=== PATIENT | female | born 1950 | race Caucasian/White ===

== ENCOUNTER → 2019-03-24 | Day surgery (SDC) | payer MEDICARE ==
[2019-03-23 09:31] VITALS: BMI 23.9
[~2019-03-24] MED LIST: Cyclopentolate 1% Opth Drop 2 ML BOT L EYE SCH; Cyclopentolate 1% Opth Drop 2 ML BOT ONE; Fentanyl 100 MCG/2 ML VIAL ONE; Fluorouracil 100 MG, Enoxaparin Sodium 25 MG, EPINEPHrine 0.3 MG in Ophthalmic Irrigati... IRR SCH; Phenylephrine 2.5% Ophth Soln 5 ML BOT L EYE SCH; Phenylephrine 2.5% Ophth Soln 5 ML BOT ONE
--- NOTE | 2019-03-24 20:20 | OP ---
DATE OF PROCEDURE: 03/24/2019 PREOPERATIVE DIAGNOSIS: Rhegmatogenous retinal detachment, left eye. POSTOPERATIVE DIAGNOSIS: Rhegmatogenous retinal detachment, left eye. PROCEDURES PERFORMED: Pars plana vitrectomy, complex retinal detachment repair, left eye. ANESTHESIA: General endotracheal anesthesia. DESCRIPTION OF PROCEDURE: The patient was identified in the preoperative holding area. Appropriate informed consent for the planned surgical procedure on the left eye had been obtained. General endotracheal anesthesia was initiated. Retrobulbar block was placed. The patient was prepped and draped in usual sterile manner for ophthalmic surgery in the left eye. Lid speculum was placed in the left eye. 25-gauge trocar was placed in the conjunctiva and sclera superotemporally, inferotemporally, and supranasally. Infusion line was placed inferotemporally. Light pipe and vitreous cutter were inserted into the eye. Core vitrectomy was performed. Attention was turned to the inferior nasal . All traction was removed from the surface of the . Posterior drained retinotomy was created. Complete air-fluid exchange was performed. Fluid was drained from underneath the retina through a posterior drained retinotomy. A 360 laser was placed using Endolaser delivery device. Silicone oil was infused in the eye and sclerotomies were suture closed. Retrobulbar Kenalog and subconjunctival Ancef were placed. Antibiotic ointment was placed and the eye was patched and shielded. The patient was advised to position left side down and follow up with Dr. Bowers in the morning. Job ID: [id number]
== END ==
LOC: SDC 09:46
PROVIDERS: ATTEND Ophthalmology Retina Specialist
PROC: 08T53ZZ Resection of Left Vitreous, Percutaneous Approach (ICD-10-PCS; principal; 2019-03-24)
DX: H33.002 Unspecified retinal detachment with retinal break, left eye (principal)
CPT/HCPCS: 67108; C1814; J0171; J1650; J3010; J9190

== ENCOUNTER 2019-07-07 10:22 | Day surgery (SDC) | payer MEDICARE ==
[2019-07-06 14:37] VITALS: BMI 23.7
[~2019-07-07 10:22] MED LIST changes: -Cyclopentolate 1% Opth Drop 2 ML BOT L EYE SCH; -Cyclopentolate 1% Opth Drop 2 ML BOT ONE; +Midazolam HCl 2 mg/2 ml Vial ONE; +PROPOFOL 20 ML ONE; -Phenylephrine 2.5% Ophth Soln 5 ML BOT L EYE SCH; -Phenylephrine 2.5% Ophth Soln 5 ML BOT ONE
[2019-07-07] MEDS ORDERED: Phenylephrine 2.5% Ophth Soln 5 ML BOT ONE (10:34)
[2019-07-07] MEDS ORDERED: Cyclopentolate 1% Opth Drop 2 ML BOT ONE (10:34)
--- NOTE | 2019-07-07 21:21 | OP ---
DATE OF PROCEDURE: 07/07/2019 PREOPERATIVE DIAGNOSIS: Vitreous opacification, epiretinal membrane. POSTOPERATIVE DIAGNOSIS: Vitreous opacification, epiretinal membrane. PROCEDURE PERFORMED: Pars plana vitrectomy, membrane peel, left eye. ANESTHESIA: Local with monitored anesthesia care. PROCEDURE IN DETAIL: The patient was identified in the preoperative holding area. Appropriate informed consent for the planned surgical procedure on the left eye had been obtained. The patient was transported to the operative suite. Appropriate cardiopulmonary monitoring was established. Local anesthesia was obtained using retrobulbar modified Van Lint lid block using 50:50 mixture of 4% lidocaine and 0.75% bupivacaine. The patient was prepped and draped in usual sterile manner for ophthalmic surgery, left eye. Lid speculum was placed in the left eye. 25-gauge trocar was placed in conjunctiva and sclera supratemporally, inferotemporally, and supranasally. Infusion line was placed inferotemporally. Light pipe vitreous cutter was inserted to the eye. Core vitrectomy was performed. Silicone oil was removed to fill the eye using viscous fluid removal device. Indocyanine green dye was infused on the posterior pole x1, identifying the large epiretinal membrane and star fold. This was elevated using membrane scraper and peeled across the macula using end gripping forceps. No further holes, breaks, or tears were identified. The retina looked well attached. Sclerotomy suture closed with 7-0 Vicryl suture and 6-0 plain gut suture. Retrobulbar Kenalog and subconjunctival Ancef were placed. Antibiotic ointment was placed. Eye was patched and shielded. The patient was taken to postoperative recovery unit in good condition having suffered no immediate perioperative complications. The patient was instructed to keep patch and shield on, avoid lifting or bending. Followup appointment with Dr. Bowers. Job ID: [id number]
== END 2019-07-07 13:40 | disposition home or self-care (01) ==
LOC: SDC 10:22
PROVIDERS: ATTEND Ophthalmology Retina Specialist
PROC: 08T53ZZ Resection of Left Vitreous, Percutaneous Approach (ICD-10-PCS; principal; 2019-07-07)
PROC: 08NF3ZZ Release Left Retina, Percutaneous Approach (ICD-10-PCS; 2019-07-07)
DX: H35.372 Puckering of macula, left eye (principal); H43.392 Other vitreous opacities, left eye
CPT/HCPCS: J0171; J1650; J2250; J2704; J3010; J9190

== ENCOUNTER 2019-08-18 05:57 | Day surgery (SDC) | payer MEDICARE ==
[2019-08-17 14:00] VITALS: BMI 24.4
[2019-08-18] MEDS ORDERED: Fluorouracil 100 MG, Enoxaparin Sodium 25 MG, EPINEPHrine 0.3 MG in Ophthalmic Irrigati... IRR SCH ×2 (06:00→06:06)
[2019-08-18] MEDS ORDERED: Sodium Chloride 0.9% 0 ML ONE (06:03)
[2019-08-18] MEDS ORDERED: cefOXitin 2 GM VIAL ONE (06:03)
[2019-08-18] MEDS ORDERED: Phenylephrine 2.5% Ophth Soln 5 ML BOT ONE (06:05)
[2019-08-18] MEDS ORDERED: Cyclopentolate 1% Opth Drop 2 ML BOT ONE (06:05)
[2019-08-18] MEDS ORDERED: Midazolam HCl 2 mg/2 ml Vial ONE ×2 (06:39→07:52)
[2019-08-18] MEDS ORDERED: Fentanyl 100 MCG/2 ML VIAL ONE (06:39)
--- NOTE | 2019-08-18 13:49 | OP ---
DATE OF PROCEDURE: 08/18/2019 PREOPERATIVE DIAGNOSIS: Rhegmatogenous retinal detachment, left eye. POSTOPERATIVE DIAGNOSIS: Rhegmatogenous retinal detachment, left eye. PROCEDURES PERFORMED: Pars plana vitrectomy and retinal detachment repair, left eye. ANESTHESIA: Local with monitored anesthesia care. DESCRIPTION OF PROCEDURE: The patient was identified in the preoperative holding area. Appropriate informed consent for the planned surgical procedure on the left eye had been obtained. The patient was transported to the operative suite. Appropriate cardiopulmonary monitoring established, local anesthesia obtained using a retrobulbar block. The patient was prepped and draped in usual sterile manner for ophthalmic surgery on the left eye. Lid speculum was placed in the left eye. 25-gauge trocar was placed in conjunctiva and sclera superotemporally, inferotemporally, and supranasally. Infusion line was placed inferotemporally. Light pipe vitreous cutter inserted into the eye. Core vitrectomy was performed. A break was noted at the 12:30 position. The scleral depressed vitrectomy was performed removing any residual vitreous from the area of the tear. 270 superior anterior laser was placed and fluid was drained through previously existing inferior nasal retinotomy. 28% sulfur hexafluoride gas was infused into the eye. Sclerotomy was suture closed with 6-0 plain gut suture. Retrobulbar Kenalog was placed. Antibiotic ointment was placed. Eye was patched and shielded. The patient was taken to postoperative recovery unit in good condition having suffered no immediate perioperative complications. The patient was instructed to keep patch and shield on, avoid lifting or bending, and followup appointment with Dr. Bowers. Job ID: [id number]
== END 2019-08-18 08:45 | disposition home or self-care (01) ==
LOC: SDC 05:57
PROVIDERS: ATTEND Ophthalmology Retina Specialist
PROC: 08953ZZ Drainage of Left Vitreous, Percutaneous Approach (ICD-10-PCS; principal; 2019-08-18)
DX: H33.002 Unspecified retinal detachment with retinal break, left eye (principal)
CPT/HCPCS: J0171; J0694; J1650; J2250; J3010; J3490; J9190

== ENCOUNTER 2019-10-06 09:45 | Day surgery (SDC) | payer MEDICARE ==
[2019-10-05 13:40] VITALS: BMI 24.4
[2019-10-06] MEDS ORDERED: Cyclopentolate 1% Opth Drop 2 ML BOT ONE (10:09)
[2019-10-06] MEDS ORDERED: Phenylephrine 2.5% Ophth Soln 5 ML BOT ONE (10:09)
[2019-10-06] MEDS ORDERED: Midazolam HCl 2 mg/2 ml Vial ONE (10:45)
[2019-10-06] MEDS ORDERED: Famotidine/PF 20 mg/2ml Vial ONE (11:43)
[2019-10-06] MEDS ORDERED: Maxitrol 0.1% Opth Oint 3.5 GM TUBE ONE (13:31)
[2019-10-06] MEDS ORDERED: Dexamethasone 20 MG/5 ML VIAL ONE (13:31)
[2019-10-06] MEDS ORDERED: Lidocaine 1% PF 5 ML VIAL ONE ×2 (13:31)
[2019-10-06] MEDS ORDERED: Bupivacaine PF 0.75% SDV 10 ML ONE (13:31)
[2019-10-06] MEDS ORDERED: Lidocaine 4% PF 5 ML AMP ONE (13:31)
[2019-10-06] MEDS ORDERED: Ondansetron PF 4 MG/2 ML Vial ONE (13:31)
[2019-10-06] MEDS ORDERED: ePHEDrine/0.9% NaCl/PF SYRINGE 50 mg/10 ml ONE (13:31)
[2019-10-06] MEDS ORDERED: Triamcinolone 40 MG/ML VIAL ONE (13:31)
[2019-10-06] MEDS ORDERED: Metoclopramide HCl 10 MG/2 ML VIAL ONE (13:31)
[2019-10-06] MEDS ORDERED: CEFAZOLIN 1 GM VIAL ONE (13:31)
[2019-10-06] MEDS ORDERED: PHENYLEPHRINE-NS 100 MCG/ML 10 ML SYRINGE ONE (13:31)
[2019-10-06] MEDS ORDERED: PROPOFOL 200 MG/20 ML VIAL ONE (13:31)
--- NOTE | 2019-10-07 13:17 | OP ---
DATE OF PROCEDURE: 10/06/2019 PREOPERATIVE DIAGNOSIS: Cataract retinal detachment, left eye. POSTOPERATIVE DIAGNOSIS: Cataract retinal detachment, left eye. PROCEDURES PERFORMED: Pars plana vitrectomy, pars plana lensectomy, secondary intra-ocular lens and retinal detachment repair, left eye. ANESTHESIA: General endotracheal anesthesia. PROCEDURE IN DETAIL: The patient was identified in the preoperative holding area. Appropriate informed consent for the planned surgical procedure on the left eye had been obtained. The patient was transported to the operative suite. Appropriate cardiopulmonary monitoring was established. The patient was prepped and draped in usual sterile manner for ophthalmic surgery, left eye. Lid speculum was placed in the left eye. 25-gauge trocar was placed in the conjunctiva and sclera superotemporally, , inferotemporally, and supranasally. Infusion line was placed inferotemporally. Light pipe vitreous cutter was inserted into the eye. Core vitrectomy was performed. Fragmatome was inserted into the eye, and the crystalline lens was removed via posterior approach. Fluid was removed from underneath the retina, flattened the retina completely and 360 laser was placed using Endolaser delivery device. MA60AC intra-ocular lens was inserted into the eye, and the haptics were externalized using the anomaly procedure. 20% sulfur hexafluoride gas was infused into the eye. Sclerotomy was suture closed. Retrobulbar Kenalog and subconjunctival Ancef were placed. Antibiotic ointment was placed. Eye was patched and shielded. The patient was taken to postop care unit in good condition, having suffered no immediate perioperative complications. The patient was instructed to keep patch and shield on, avoid lifting and bending, followup appointment with Dr. Bowers. Job ID: [id number]
== END 2019-10-06 16:50 | disposition home or self-care (01) ==
LOC: SDC 09:45
PROVIDERS: ATTEND Ophthalmology Retina Specialist
PROC: 08T53ZZ Resection of Left Vitreous, Percutaneous Approach (ICD-10-PCS; principal; 2019-10-06)
PROC: 085K3ZZ Destruction of Left Lens, Percutaneous Approach (ICD-10-PCS; 2019-10-06)
DX: H33.22 Serous retinal detachment, left eye (principal); H25.89 Other age-related cataract; H54.40 Blindness, one eye, unspecified eye; Z79.899 Other long term (current) drug therapy
CPT/HCPCS: 66850; 67025; 67108; C1780; J0171; J0690; J1100; J1650; J2001; J2250; J2405; J2704; J2765; J3010; J3301; J3490; J9190; S0028

== ENCOUNTER 2019-10-20 05:57 | Day surgery (SDC) | payer MEDICARE ==
[2019-10-20] MEDS ORDERED: Cyclopentolate 1% Opth Drop 2 ML BOT ONE (06:05)
[2019-10-20] MEDS ORDERED: Phenylephrine 2.5% Ophth Soln 5 ML BOT ONE (06:05)
[2019-10-20] MEDS ORDERED: Cyclopentolate 1% Opth Drop 2 ML BOT FS SCH (06:12)
[2019-10-20] MEDS ORDERED: Phenylephrine 2.5% Ophth Soln 5 ML BOT FS SCH (06:12)
[2019-10-20] MEDS ORDERED: Fluorouracil 100 MG, Enoxaparin Sodium 25 MG, EPINEPHrine 0.3 MG, Dextrose 50% 3 ML in ... IRR SCH (06:12)
[2019-10-20] MEDS ORDERED: Acetaminophen 500 MG TAB PO PRN (06:12)
[2019-10-20] MEDS ORDERED: EPINEPHrine 0.3 MG in Ophthalmic Irrigation Solution 500 ML IRR SCH (06:12)
[2019-10-20] MEDS ORDERED: Fluorouracil 100 MG, Enoxaparin Sodium 25 MG, EPINEPHrine 0.3 MG in Ophthalmic Irrigati... IRR SCH (06:30)
[2019-10-20] MEDS ORDERED: Fentanyl 100 MCG/2 ML VIAL ONE (06:32)
[2019-10-20] MEDS ORDERED: Midazolam HCl 2 mg/2 ml Vial ONE ×2 (06:32→06:36)
[2019-10-20] MEDS ORDERED: Bupivacaine PF 0.75% SDV 10 ML ONE (09:57)
[2019-10-20] MEDS ORDERED: Maxitrol 0.1% Opth Oint 3.5 GM TUBE ONE (09:57)
[2019-10-20] MEDS ORDERED: Lidocaine 1% PF 5 ML VIAL ONE ×2 (09:57)
[2019-10-20] MEDS ORDERED: Triamcinolone 40 MG/ML VIAL ONE (09:57)
[2019-10-20] MEDS ORDERED: PHENYLEPHRINE-NS 100 MCG/ML 10 ML SYRINGE ONE (09:57)
[2019-10-20] MEDS ORDERED: Lidocaine 4% PF 5 ML AMP ONE (09:57)
[2019-10-20] MEDS ORDERED: Ondansetron PF 4 MG/2 ML Vial ONE (09:57)
[2019-10-20] MEDS ORDERED: Metoclopramide HCl 10 MG/2 ML VIAL ONE (09:57)
[2019-10-20] MEDS ORDERED: PROPOFOL 200 MG/20 ML VIAL ONE (09:57)
[2019-10-20] MEDS ORDERED: CEFAZOLIN 1 GM VIAL ONE (09:57)
[2019-10-20] MEDS ORDERED: Dexamethasone 20 MG/5 ML VIAL ONE (09:57)
[2019-10-20] MEDS ORDERED: Enoxaparin Sodium 30 MG/0.3 ML SYRINGE ONE (09:59)
--- NOTE | 2019-10-20 15:02 | OP ---
DATE OF PROCEDURE: 10/20/2019 PREOPERATIVE DIAGNOSIS: Rhegmatogenous retinal detachment, left eye. POSTOPERATIVE DIAGNOSIS: Rhegmatogenous retinal detachment, left eye. PROCEDURE PERFORMED: Pars plana vitrectomy, retinal detachment repair of left eye. ANESTHESIA: General endotracheal anesthesia. DESCRIPTION OF PROCEDURE: The patient was identified in the preoperative holding area. Appropriate informed consent for the planned surgical procedure on the left eye had been obtained. The patient was transported to the operative suite. Appropriate cardiopulmonary monitoring was established. General endotracheal anesthesia was initiated. Local anesthesia was obtained using retrobulbar block. The patient was prepped and draped in usual sterile manner for ophthalmic surgery in the left eye. Lid speculum was placed in the left eye. A 25-gauge trocar was placed in the conjunctiva and sclera superotemporally, inferotemporally, and supranasally. Infusion line was placed inferotemporally. Once superior iris suture was removed, opening the pupillary diameter. Attention was turned to the posterior pole identifying the detached retina. Complete air- fluid exchange was performed at 10 minutes being left for fluid to drain posteriorly. 360 laser was placed using Endolaser delivery device. Laser was also placed around the posterior drained retinotomy. A 20-gauge sclerotomy was created superior temporally and silicone oil was infused into the eye. Sclerotomy was suture closed with 7-0 Vicryl suture. Conjunctiva was closed with 6-0 plain gut suture. Retrobulbar Kenalog sequential Ancef was placed. Antibiotic ointment was placed. Eye was patched and shielded. The patient was taken to postoperative recovery unit in good condition, having suffered no immediate perioperative complications. The patient was instructed to avoid flat and back positioning, followup appointment with Dr. Bowers. Job ID: [id number] [facility]ert
== END 2019-10-20 09:43 | disposition home or self-care (01) ==
LOC: SDC 05:57
PROVIDERS: ATTEND Ophthalmology Retina Specialist
PROC: 08T53ZZ Resection of Left Vitreous, Percutaneous Approach (ICD-10-PCS; principal; 2019-10-20)
PROC: 08QF3ZZ Repair Left Retina, Percutaneous Approach (ICD-10-PCS; 2019-10-20)
DX: H33.002 Unspecified retinal detachment with retinal break, left eye (principal)
CPT/HCPCS: 67108; C1814; J0171; J0690; J1100; J1650; J2001; J2250; J2405; J2704; J2765; J3010; J3301; J3490; J9190

== ENCOUNTER 2021-08-29 14:51 | Outpatient (CLI) | payer MEDICARE | END 2021-08-29 14:52 | disposition home or self-care (01) | LOC: SCSRAD 14:51 | PROVIDERS: ATTEND Physician Assistant | DX: R06.02 Shortness of breath (principal) | CPT/HCPCS: 71046 ==